=== PATIENT | male | born 1975 | race Caucasian/White ===

== ENCOUNTER 2023-05-11 13:12 | Emergency (ER) | payer OTHER ==
[~2023-05-11] VITALS: Ht 177.8 cm; Wt 81.7 kg
[2023-05-11 14:28] LABS: Albumin, Blood 3.4 g/dL (3.4-5.0); Albumin/Globulin Ratio 1.2 (0.8-1.8); Bun/Creatinine Ratio 12.9 (12.0-20.0); Calcium, Blood 8.6 mg/dL (8.5-10.1); Creatinine, Blood 0.62 mg/dL (0.60-1.20); Globulin, Blood 2.9 g/dL (2.2-4.0); Potassium, Blood 3.5 mmol/L (3.5-5.5); Total Protein, Blood 6.3 g/dL (6.4-8.2)
[2023-05-11 16:14] LABS: BASOPHILS ABSOLUTE AUTO 0.01 K/mm3 (0.00-0.23); BASOPHILS PERCENT AUTO 0 % (0-2); EOSINOPHILS PERCENT AUTO 0 % (0-6); IMMATURE GRAN ABSOLUTE AUTO 0.04 K/mm3 (0.00-0.10); IMMATURE GRAN PERCENT AUTO 1 % (0-1); LYMPHOCYTES ABSOLUTE AUTO 0.29 K/mm3 (0.84-5.20); LYMPHOCYTES PERCENT AUTO 6 % (21-46); MONOCYTES ABSOLUTE AUTO 0.29 K/mm3 (0.16-1.47); MONOCYTES PERCENT AUTO 6 % (4-13); Mean Corpuscular HGB 34.8 pg (26.0-34.0); Mean Corpuscular HGB Conc 37.1 g/dL (31.5-36.5); Mean Corpuscular Volume 94 fL (80-100); Mean Platelet Volume 9.4 fL (9.1-12.4); NEUTROPHILS ABSOLUTE AUTO 4.12 K/mm3 (1.96-9.15); NEUTROPHILS PERCENT AUTO 87 % (41-73); RDW Coefficient Variation 11.8 % (11.7-14.2); RDW Standard Deviation 40.5 fL (35.1-46.3)
[2023-05-11 16:21] LABS: Hematocrit 37.2 % (37.0-53.0); Hemoglobin 13.8 g/dL (13.5-17.5); Platelet Count 243 K/mm3 (150-400); Red Blood Cell Count 3.96 M/mm3 (4.30-5.90); White Blood Cell Count 14.25 K/mm3 (4.00-11.30)
[2023-05-11 16:50] LABS: Source, Urine Clean Catch
[2023-05-11] MEDS ORDERED: IRBESARTAN-HCT1 EAC3 PO (17:03)
[2023-05-11] MEDS ORDERED: AMLODIPINE BESY10 MG PO (17:03)
[2023-05-11 17:15] LABS: Appearance, Urine Cloudy (Clear); Bilirubin, Urine Neg (Neg); Blood, Urine 5+ (Neg); Color, Urine Brown (P-Yellow); Glucose Qualitative, Urine Neg (Neg); Ketones, Urine 3+ (Neg); Leukocyte Esterase, Urine 1+ (Neg); Nitrite, Urine Neg (Neg); Protein, Urine 4+ (Neg); Urobilinogen, Urine 1+ (Normal); pH, Urine 6.5 (5.0-8.0)
[2023-05-11 18:00] LABS: Red Blood Cells, Urine TNTC /hpf (0-2)
[2023-05-11 18:01] LABS: Squamous Epithelial Cells Few /hpf (Few)
[2023-05-11 18:06] LABS: Amorphous Light (0-Heavy); Bacteria Few /hpf
[2023-05-11 18:07] LABS: Other Crystals Few /hpf
[2023-05-11 18:45] VITALS: BP 148/98
[2023-05-11] MEDS ORDERED: Norco 5-325 Ta1 EACH PO ×2 (18:51→19:10)
[2023-05-11] MEDS ORDERED: CEPH500 PO (18:52)
== END 2023-05-11 19:20 | disposition home or self-care (01) ==
LOC: ER 13:12
PROVIDERS: Physician Assistant
DX: R31.0 Gross hematuria (principal); N28.1 Cyst of kidney, acquired; F17.200 Nicotine dependence, unspecified, uncomplicated
CPT/HCPCS: 74177; 80053; 81001; 83690; 85025; 96365-59; 96375; 99284-25; J0696; J1170; J2405; Q9967

== ENCOUNTER 2023-08-23 02:35 | Inpatient (IN) | payer OTHER ==
[~2023-08-23] VITALS: Ht 177.8 cm; Wt 51.7 kg
[~2023-08-23 02:35] MED LIST: AMLODIPINE BESY10 MG PO; CEPH500 PO; IRBESARTAN-HCT1 EAC3 PO; Norco 5-325 Ta1 EACH PO
[2023-08-23 03:02] LABS: BASOPHILS ABSOLUTE AUTO 0.06 K/mm3 (0.00-0.23); BASOPHILS PERCENT AUTO 0 % (0-2); EOSINOPHILS ABSOLUTE AUTO 0.19 K/mm3 (0.00-0.68); EOSINOPHILS PERCENT AUTO 1 % (0-6); Hematocrit 30.4 % (37.0-53.0); IMMATURE GRAN ABSOLUTE AUTO 0.07 K/mm3 (0.00-0.10); IMMATURE GRAN PERCENT AUTO 1 % (0-1); LYMPHOCYTES ABSOLUTE AUTO 0.95 K/mm3 (0.84-5.20); LYMPHOCYTES PERCENT AUTO 7 % (21-46); MONOCYTES ABSOLUTE AUTO 1.36 K/mm3 (0.16-1.47); MONOCYTES PERCENT AUTO 10 % (4-13); Mean Corpuscular HGB 28.9 pg (26.0-34.0); Mean Corpuscular HGB Conc 36.2 g/dL (31.5-36.5); Mean Corpuscular Volume 80 fL (80-100); Mean Platelet Volume 8.7 fL (9.1-12.4); NEUTROPHILS ABSOLUTE AUTO 10.88 K/mm3 (1.96-9.15); NEUTROPHILS PERCENT AUTO 81 % (41-73); Platelet Count 441 K/mm3 (150-400); RDW Coefficient Variation 12.4 % (11.7-14.2); RDW Standard Deviation 35.8 fL (35.1-46.3); Red Blood Cell Count 3.81 M/mm3 (4.30-5.90); White Blood Cell Count 13.51 K/mm3 (4.00-11.30)
[2023-08-23 03:50] LABS: Albumin, Blood 2.5 g/dL (3.4-5.0); Albumin/Globulin Ratio 0.6 (0.8-1.8); Calcium, Blood 8.6 mg/dL (8.5-10.1); Globulin, Blood 3.9 g/dL (2.2-4.0); Potassium, Blood 3.2 mmol/L (3.5-5.5); Total Protein, Blood 6.4 g/dL (6.4-8.2)
[2023-08-23 07:49] LABS: Source, Urine Clean Catch
[2023-08-23 07:53] LABS: Appearance, Urine Clear (Clear); Blood, Urine 5+ (Neg); Color, Urine Yellow (P-Yellow); Glucose Qualitative, Urine Neg (Neg); Ketones, Urine 3+ (Neg); Leukocyte Esterase, Urine 1+ (Neg); Nitrite, Urine Neg (Neg); Protein, Urine 2+ (Neg); Specific Gravity, Urine 1.015 (1.003-1.022); Urobilinogen, Urine 2+ (Normal)
[2023-08-23 07:59] LABS: Bilirubin, Urine 1+ (Neg)
[2023-08-23 08:00] LABS: Bacteria Rare /hpf; Mucus Light (0-Heavy); Squamous Epithelial Cells Rare /hpf (Few)
[2023-08-23 08:10] LABS: Bun/Creatinine Ratio 12.4 (12.0-20.0); Calcium, Blood 8.2 mg/dL (8.5-10.1); Creatinine, Blood 0.97 mg/dL (0.60-1.20); Potassium, Blood 3.5 mmol/L (3.5-5.5)
[2023-08-23 11:26] VITALS: BP 102/73
[2023-08-23] MEDS ORDERED: TRAM50 PO (13:34)
[2023-08-23] MEDS ORDERED: NEURONTIN300 MG PO (13:34)
[2023-08-23] MEDS ORDERED: DOCU100 PO (13:35)
--- NOTE | 2023-08-23 15:26 | NUR ---
DISCHARGE SUMMARY: PT DISCHARGED TO HOME. PT VERBALIZED HE WILL BE GOING TO [facility] IN [place]. PT MEDICATIONS RETRIEVED FROM PHARMACY AND GIVEN TO HIM. PT EDUCATED ON DISCHARGE MEDICATIONS AND INSTRUCTIONS. PT MAYRA. PT ASSISTED WITH PACKING BELONGINGS AND ESCORTED TO [facility] BY [facility]. PT AMBULATED DOWN, REFUSING WHEELCHAIR TRANSPORT AND WAS STEADY ON FEET.
[2023-08-23 15:52] VITALS: BP 98/73
--- NOTE | 2023-08-23 18:18 | NUR ---
SHIFT SUMMARY: PT A/O X 4, STANDBY ASSIST, PLEASANT AND COOPERATIVE. PT HAS LOW BLOOD PRESSURE OF 98/73 THIS EVEVING IS ASYMPTOMATIC. PT ABD PAIN MANAGED WITH TRAMADOL AND TYLENOL. PT GOT ONE DOSE OF FENTANYL 25 MCG IN ER. PT ABD IS DISTENDED AND HARD. PT REPORTS WEIGHT LOSS AND VERY POOR APPETITE OVER THE PAST WEEK. PT HAS LARGE RED BUMP ON HIS BACK WHICH HE ALSO REPORTS HAS BEEN ON HIS BACK FOR ABOUT A WEEK. STAGE 2 PRESSURE SORE TO BOTTOM PRESENT.
[2023-08-23 19:21] VITALS: BP 95/67
[2023-08-24 03:22] VITALS: BP 105/79
--- NOTE | 2023-08-24 04:35 | NUR ---
SHIFT SUMMARY. SHIFT HAS BEEN MOSTLY UNREMARKABLE. PT IS AOX4, PLEASANT, COOPERATIVE WITH CARE. COMPLAINED OF PAIN EARLY IN SHIFT WHICH HAS BEEN WELL MANAGED VIA EMAR. PT HAS BEEN ABLE TO SLEEP THROUGH MOST OF SHIFT THUS FAR. SATTING WELL ON ROOM AIR, CALLS APPROPRIATELY FOR ASSISTANCE. BED LOCKED IN LOWEST POSITION. CALL LIGHT LEFT WITHIN REACH.
[2023-08-24 05:32] LABS: BASOPHILS ABSOLUTE AUTO 0.08 K/mm3 (0.00-0.23); BASOPHILS PERCENT AUTO 1 % (0-2); EOSINOPHILS PERCENT AUTO 2 % (0-6); Hemoglobin 9.8 g/dL (13.5-17.5); IMMATURE GRAN ABSOLUTE AUTO 0.05 K/mm3 (0.00-0.10); IMMATURE GRAN PERCENT AUTO 1 % (0-1); LYMPHOCYTES ABSOLUTE AUTO 1.52 K/mm3 (0.84-5.20); LYMPHOCYTES PERCENT AUTO 14 % (21-46); MONOCYTES ABSOLUTE AUTO 1.18 K/mm3 (0.16-1.47); MONOCYTES PERCENT AUTO 11 % (4-13); Mean Corpuscular HGB 28.4 pg (26.0-34.0); Mean Corpuscular HGB Conc 33.8 g/dL (31.5-36.5); Mean Corpuscular Volume 84 fL (80-100); Mean Platelet Volume 9.4 fL (9.1-12.4); NEUTROPHILS PERCENT AUTO 73 % (41-73); Platelet Count 392 K/mm3 (150-400); RDW Coefficient Variation 13.5 % (11.7-14.2); RDW Standard Deviation 38.5 fL (35.1-46.3); Red Blood Cell Count 3.45 M/mm3 (4.30-5.90); White Blood Cell Count 11.03 K/mm3 (4.00-11.30)
[2023-08-24 06:27] LABS: Bun/Creatinine Ratio 11.4 (12.0-20.0); Calcium, Blood 7.8 mg/dL (8.5-10.1); Creatinine, Blood 0.96 mg/dL (0.60-1.20)
[2023-08-24 07:30] VITALS: BP 96/74
[2023-08-24 15:40] VITALS: BP 104/78
--- NOTE | 2023-08-24 18:29 | NUR ---
SHIFT SUMMARY A&O X 4, VSS. HAS RESTED QUIETLY THROUGHOUT THE SHIFT. MEDICATED PRN FOR C/O PAIN PER EMAR WITH GOOD RELIEF STATED BY PT. ULCER ON L SIDE OF COCCCYX CLEANED & MEPIPLEX APPLIED. PT STATES THE BUTTOCKS WOUND FEELS MUCH BETTER WITH DRESSING ON. POSITIONED PT WITH PILLOWS FOR COMFORT & OFF LOADING BUTTOCKS/COCCYX. URINE IS DARK, USES URINAL INDEPENDENTLY. MIRALAX, STOOL SOFTNER & SENNA GIVEN PER EMAR. PT STATES HE HAS NOT HAD A BM IN DAYS. BED IS IN LOW POSITION, CALLL LIGHT WITHIN REACH.
[2023-08-24 20:00] VITALS: BP 104/74
[2023-08-25 02:04] VITALS: BP 104/81
--- NOTE | 2023-08-25 04:35 | NUR ---
SHIFT SUMMARY. SHIFT HAS BEEN MOSTLY UNREMARKABLE. PT AOX4, PLEASANT, COOPERATIVE WITH CARE. CALLS APPROPRIATELY FOR ASSISTANCE AND IS ABLE TO MAKE NEEDS KNOWN. SOME MILD PAIN REPORTED EARLY IN SHIFT, WELL MANAGED VIA PRN PAIN MEDICATIONS. PT HAS BEEN ABLE TO SLEEP THROUGH MOST OF SHIFT SINCE ADMINISTRATION. BED LOCKED IN LOWEST POSITION. CALL LIGHT LEFT WITHIN REACH.
[2023-08-25 05:34] LABS: Hematocrit 28.9 % (37.0-53.0); Hemoglobin 9.8 g/dL (13.5-17.5); Mean Corpuscular HGB Conc 33.9 g/dL (31.5-36.5); Mean Corpuscular Volume 83 fL (80-100); Mean Platelet Volume 8.3 fL (9.1-12.4); Platelet Count 356 K/mm3 (150-400); RDW Coefficient Variation 12.5 % (11.7-14.2); RDW Standard Deviation 38.1 fL (35.1-46.3); White Blood Cell Count 8.43 K/mm3 (4.00-11.30)
[2023-08-25 06:15] LABS: Bun/Creatinine Ratio 8.8 (12.0-20.0); Calcium, Blood 7.9 mg/dL (8.5-10.1); Creatinine, Blood 0.91 mg/dL (0.60-1.20); Magnesium, Blood 2.1 mg/dL (1.6-2.4); Potassium, Blood 3.6 mmol/L (3.5-5.5)
[2023-08-25 15:13] VITALS: BP 107/76
--- NOTE | 2023-08-25 18:57 | NUR ---
SHIFT SUMMARY ALERT, ORIENTED, WITHDRAWN, UNMOTIVATED, FOLLOWS DIRECTIONS. SBA/IND UP WITH CANE TO BATHROOM. LEFT ABD FIRM AND DISTENDED. REPORTS PAIN 10/10, MEDICATED PER EMAR. INCREASED BOWEL CARE THIS SHIFT, ALTHOUGH PATIENT UNMOTIVATED TO DRINK MIRALAX OR PRUNE JUICE. PLAN IS FOR DISCHARGE HOME WHEN STABLE AND FOLLOW UP WITH UROLOGY REGARDING LEFT KIDNEY TUMOR.
[2023-08-25 19:55] VITALS: BP 106/78
--- NOTE | 2023-08-26 05:12 | NUR ---
NOC SHIFT SUMMARY: POSSIBLE DISCHARGE HOME TODAY. CONTINUES WITH LEFT RENAL MASS AND PAIN. UP INDEPENDENTLY IN THE ROOM. A&O X4.
[2023-08-26 05:24] VITALS: BP 127/92
[2023-08-26 06:55] LABS: Calcium, Blood 8.2 mg/dL (8.5-10.1); Creatinine, Blood 0.89 mg/dL (0.60-1.20); Magnesium, Blood 2.4 mg/dL (1.6-2.4); Phosphorus, Blood 3.2 mg/dL (2.5-4.9); Potassium, Blood 3.9 mmol/L (3.5-5.5)
[2023-08-26 07:35] VITALS: BP 108/85
[2023-08-26] MEDS ORDERED: OXAYDO5 M1 PO (15:31)
[2023-08-26] MEDS ORDERED: DOCUZEN 8.6-501 EACH PO (15:32)
[2023-08-26] MEDS ORDERED: MIRALAX17 GM PO (15:33)
--- NOTE | 2023-08-26 18:18 | NUR ---
DISCHARGE: PT D/C VIA WHEELCHAIR WITH FAMILY. IV REMOVED BY POLYSOM TECH W/O COMPLICATIONS. PT HAD MEDIUM FORMED BM THIS SHIFT. PT SENT WITH HARD SCRIPT FOR OXY. RX MEDICATIONS FAXED TO [facility].
== END 2023-08-26 17:20 | disposition home or self-care (01) | DRG 640 ==
LOC: ER 02:35 → MEDS 09:35
PROVIDERS: Emergency Medicine; Internal Medicine; ADMIT Family Medicine
DX: E87.1 Hypo-osmolality and hyponatremia (principal); E43 Unspecified severe protein-calorie malnutrition; N13.30 Unspecified hydronephrosis; R64 Cachexia; E86.0 Dehydration; I10 Essential (primary) hypertension; E87.6 Hypokalemia; F12.90 Cannabis use, unspecified, uncomplicated; D64.9 Anemia, unspecified; D75.838 Other thrombocytosis; N28.89 Other specified disorders of kidney and ureter; Z79.899 Other long term (current) drug therapy; Z87.891 Personal history of nicotine dependence; Z68.24 Body mass index [BMI] 24.0-24.9, adult
CPT/HCPCS: 36415; 74177; 80048; 80053; 81001; 83605; 83735; 83930; 84100; 84295; 84300; 85025; 85027; 87040; 87086; 96361; 96374-59; 96375; 99285-25; A9270; J0696; J1650; J2270; J2405; J3010; J7030; Q9967

== ENCOUNTER 2023-10-20 16:39 | Inpatient (IN) | payer OTHER ==
[~2023-10-20] VITALS: Ht 177.8 cm; Wt 53.2 kg
[~2023-10-20 16:39] MED LIST changes: +DOCU100 PO; +DOCUZEN 8.6-501 EACH PO; +MIRALAX17 GM PO; +NEURONTIN300 MG PO; +OXAYDO5 M1 PO; +TRAM50 PO
[2023-10-20 17:12] LABS: BASOPHILS ABSOLUTE AUTO 0.07 K/mm3 (0.00-0.23); BASOPHILS PERCENT AUTO 0 % (0-2); EOSINOPHILS ABSOLUTE AUTO 0.03 K/mm3 (0.00-0.68); EOSINOPHILS PERCENT AUTO 0 % (0-6); Hematocrit 28.6 % (37.0-53.0); IMMATURE GRAN ABSOLUTE AUTO 0.19 K/mm3 (0.00-0.10); IMMATURE GRAN PERCENT AUTO 1 % (0-1); LYMPHOCYTES ABSOLUTE AUTO 2.29 K/mm3 (0.84-5.20); LYMPHOCYTES PERCENT AUTO 11 % (21-46); MONOCYTES ABSOLUTE AUTO 1.14 K/mm3 (0.16-1.47); MONOCYTES PERCENT AUTO 5 % (4-13); Mean Corpuscular HGB 25.4 pg (26.0-34.0); Mean Corpuscular HGB Conc 31.5 g/dL (31.5-36.5); Mean Corpuscular Volume 81 fL (80-100); Mean Platelet Volume 8.3 fL (9.1-12.4); NEUTROPHILS ABSOLUTE AUTO 17.59 K/mm3 (1.96-9.15); NEUTROPHILS PERCENT AUTO 83 % (41-73); Platelet Count 828 K/mm3 (150-400); RDW Coefficient Variation 17.9 % (11.7-14.2); RDW Standard Deviation 50.4 fL (35.1-46.3); Red Blood Cell Count 3.55 M/mm3 (4.30-5.90); White Blood Cell Count 21.31 K/mm3 (4.00-11.30)
[2023-10-20 17:34] LABS: Albumin, Blood 2.1 g/dL (3.4-5.0); Albumin/Globulin Ratio 0.5 (0.8-1.8); Bilirubin, Total 0.3 mg/dL (0.1-1.0); Calcium, Blood 8.6 mg/dL (8.5-10.1); Creatinine, Blood 1.05 mg/dL (0.60-1.20); Globulin, Blood 4.1 g/dL (2.2-4.0); Potassium, Blood 4.1 mmol/L (3.5-5.5); Total Protein, Blood 6.2 g/dL (6.4-8.2)
[2023-10-20 19:28] LABS: Source, Urine Clean Catch
[2023-10-20 19:38] LABS: Appearance, Urine Bloody (Clear); Bilirubin, Urine Neg (Neg); Blood, Urine 4+ (Neg); Color, Urine Red (P-Yellow); Glucose Qualitative, Urine Neg (Neg); Ketones, Urine Neg (Neg); Leukocyte Esterase, Urine 2+ (Neg); Nitrite, Urine Neg (Neg); Protein, Urine 4+ (Neg); Specific Gravity, Urine 1.015 (1.003-1.022); Urobilinogen, Urine NORM (Normal)
[2023-10-20 20:09] LABS: Bacteria Many /hpf; Red Blood Cells, Urine TNTC /hpf (0-2); Squamous Epithelial Cells Few /hpf (Few); White Blood Cells, Urine TNTC /hpf (0-5)
[2023-10-20 20:10] LABS: Mucus Light (0-Heavy)
[2023-10-20] MEDS ORDERED: HYDROCODONE-AC1 EAC7 PO (21:18)
[2023-10-20] MEDS ORDERED: IRBESARTAN-HCT1 EAC3 PO (21:18)
[2023-10-20] MEDS ORDERED: TRAM50 PO (21:19)
[2023-10-21 04:57] LABS: BASOPHILS ABSOLUTE AUTO 0.04 K/mm3 (0.00-0.23); BASOPHILS PERCENT AUTO 0 % (0-2); EOSINOPHILS ABSOLUTE AUTO 0.33 K/mm3 (0.00-0.68); EOSINOPHILS PERCENT AUTO 2 % (0-6); Hematocrit 22.5 % (37.0-53.0); IMMATURE GRAN ABSOLUTE AUTO 0.09 K/mm3 (0.00-0.10); IMMATURE GRAN PERCENT AUTO 1 % (0-1); LYMPHOCYTES ABSOLUTE AUTO 2.93 K/mm3 (0.84-5.20); LYMPHOCYTES PERCENT AUTO 21 % (21-46); MONOCYTES ABSOLUTE AUTO 1.23 K/mm3 (0.16-1.47); MONOCYTES PERCENT AUTO 9 % (4-13); Mean Corpuscular HGB 25.7 pg (26.0-34.0); Mean Corpuscular HGB Conc 31.1 g/dL (31.5-36.5); Mean Corpuscular Volume 83 fL (80-100); Mean Platelet Volume 8.4 fL (9.1-12.4); NEUTROPHILS ABSOLUTE AUTO 9.34 K/mm3 (1.96-9.15); NEUTROPHILS PERCENT AUTO 67 % (41-73); Platelet Count 524 K/mm3 (150-400); RDW Standard Deviation 51.6 fL (35.1-46.3); Red Blood Cell Count 2.72 M/mm3 (4.30-5.90); White Blood Cell Count 13.96 K/mm3 (4.00-11.30)
[2023-10-21 05:23] LABS: Calcium, Blood 7.5 mg/dL (8.5-10.1); Potassium, Blood 3.7 mmol/L (3.5-5.5)
[2023-10-21 07:49] VITALS: BP 101/68
[2023-10-21 10:58] VITALS: BP 89/59
[2023-10-21 11:32] LABS: Hematocrit 23.3 % (37.0-53.0); Hemoglobin 7.2 g/dL (13.5-17.5)
[2023-10-21 12:09] VITALS: BP 99/70
[2023-10-21 15:44] VITALS: BP 91/69
[2023-10-21 16:49] LABS: Hematocrit 22.7 % (37.0-53.0)
--- NOTE | 2023-10-21 18:31 | NUR ---
SHIFT SUMMARY: MATIAS IS A&OX4. VSS, NO ACUTE EVENTS THIS SHIFT. HE IS TOLERATING PO INTAKE WELL, ABLE TO TURN AND REPOSITION HIMSELF IN BED INDEPENDENTLY, AND IS A STANDBY ASSIST WITH HIS CANE FOR AMBULATION. HE HAS COMPLAINED OF DIZZINESS/LIGHTHEADEDNESS THIS SHIFT. HE IS USING THE URINAL WITHOUT DIFFICULTY, URINE MAROON. PT STATES HE IS UNABLE TO LIE ON EITHER SIDE D/T HX OF BACK SURGERY AND LEFT SIDED ABD DISTENTION. CREAM AND MEPILEX PLACED TO COCCYX, PILLOWS PLACED UNDERNEATH HIPS TO FLOAT COCCYX. PT REPORTS MINIMAL PAIN RELIEF WITH MEDICATIONS PER MAR. HE IS LYING IN BED WITH THE CALL LIGHT IN REACH. WILL GIVE REPORT TO ONCOMING SHIFT.
[2023-10-21 20:26] VITALS: BP 113/80
[2023-10-22] VITALS (8 sets, daily range): BP systolic 101–121; BP diastolic 63–82
--- NOTE | 2023-10-22 05:14 | NUR ---
SHIFT SUMMARY ADMITTED FOR ABDOMINAL PAIN, UTI/SEPSIS. FULL CODE. IV ANTIB RX ARE SCHEDULED, IV FLUIDS ARE SCHEDULED, MONITORING LABS. HE IS A&O X4, ON RA. HYPOTENSION NOTED SINCE ADMIT. HEMATURIA NOTED. HX OF LEFT RENAL MASS, SEES OUTPATIENT UROLOGY. PAIN RX GIVEN THIS SHIFT. CANE AND STANDBY ASSIST. REGULAR DIET. NS INFUSING ORDERED
[2023-10-22 06:40] LABS: Hematocrit 21.2 % (37.0-53.0); Hemoglobin 6.6 g/dL (13.5-17.5); Mean Corpuscular HGB 25.9 pg (26.0-34.0); Mean Corpuscular HGB Conc 31.1 g/dL (31.5-36.5); Mean Corpuscular Volume 83 fL (80-100); Mean Platelet Volume 8.5 fL (9.1-12.4); Platelet Count 471 K/mm3 (150-400); RDW Coefficient Variation 18.6 % (11.7-14.2); RDW Standard Deviation 53.5 fL (35.1-46.3); Red Blood Cell Count 2.55 M/mm3 (4.30-5.90); White Blood Cell Count 9.98 K/mm3 (4.00-11.30)
[2023-10-22 07:11] LABS: Bun/Creatinine Ratio 13.4 (12.0-20.0); Calcium, Blood 7.2 mg/dL (8.5-10.1); Creatinine, Blood 0.97 mg/dL (0.60-1.20); Magnesium, Blood 2.4 mg/dL (1.6-2.4); Percent Saturation 11.5 % (20.0-50.0); Potassium, Blood 3.9 mmol/L (3.5-5.5)
[2023-10-22 17:46] LABS: Hematocrit 27.9 % (37.0-53.0); Hemoglobin 8.7 g/dL (13.5-17.5)
--- NOTE | 2023-10-22 18:45 | NUR ---
SUMMARY- A/O X4, BEDREST TODAY.. FEELING VERY WEAK AND HAVING PAIN. HAS LOST 60LB IN 4 MTHS. KNOWN MASS L KIDNEY AREA, PLAN FOR UROLOTY CONSULT 11/02. TOLERATING MIN AMOUNT SOLID FOODS. DRINKING FLUIDS. HAD A UNIT OF BLOOD TODAY FOR LOW H/H. URINE IS BURGENDY COLOR. THIS IS ONGOING SINCE DX OF MASS. PT HAVING FLANK PAIN. CONTROLLED WITH DILAUDID BUT STATES RELEIF SHORT LIVED. OBTAINED ORDER TO START OREAL OXY TO SEE IF IT HOLDS BETTER. LAST BM 3 DAYS AGO. STARTED MIRILAX AND BROWN COW. ORDER OBTAINED FOR DULCOLAX TABS, WILL START TONIGHT. WILL REPORT TO NOC RN
[2023-10-23 05:17] VITALS: BP 96/65
[2023-10-23 07:32] LABS: Hematocrit 25.6 % (37.0-53.0)
[2023-10-23 07:44] VITALS: BP 97/62
[2023-10-23 15:38] VITALS: BP 98/72
--- NOTE | 2023-10-23 18:40 | NUR ---
SUMMARY- PT A/O X4, PLEASANT AND COOPERATIVE. STAYED IN BED MOST OF THE SHIFT. USES CALL LIGHT. NEW ORDER FOR PHISICAL TX BUT NO ONE HERE THIS WEEKEND. RN AND BED CONTROL SPECIALIST GOT PT UP TO CHAIR, 1 SBA, GEN WEAKNESS BUT ADQ STRENGTH. TIRES EASILY. AMBULATED TO BATHROOM AND HAD A SHOWER. PT CONT TO HAVE HEMATURIA, DARK RED TINGE, CONCENTRATED. PUSING PO FLUIDS BUT HAS LITTLE APPETITE. CALLED DR MOE IN PM AND INFORMED PT ISN'T TAKING IN A LOT OF FLUIDS, ORDER FOR LR 1L OVER NIGHT. PT C/O PAIN IN L FLANK REGION FREQUENTLY, OXYCOCONE 10MG GIVEN Q4 WITH ONLY PARTIAL RELEIF. GIVE DILAUDID 0.5MG IN BETWEEN FOR BTP WHICH IS EFFECTIVE. PT STATES HE HAS BEEN TAKING HYDROCODONE 10MG TABE AT HOME AND HAS A TOLERANCE. WORKING ON BOWEL CARE, LAST BM 10/20, WILL CONT WITH BOWEL CARE. WILL REPORT TO MARIA E CHAVEZ
[2023-10-23 20:38] VITALS: BP 114/82
[2023-10-24 03:49] VITALS: BP 102/70
[2023-10-24 06:08] LABS: Hematocrit 25.2 % (37.0-53.0); Hemoglobin 7.9 g/dL (13.5-17.5); Mean Corpuscular HGB 26.5 pg (26.0-34.0); Mean Corpuscular HGB Conc 31.3 g/dL (31.5-36.5); Mean Corpuscular Volume 85 fL (80-100); Mean Platelet Volume 8.7 fL (9.1-12.4); Platelet Count 464 K/mm3 (150-400); RDW Coefficient Variation 18.4 % (11.7-14.2); RDW Standard Deviation 55.8 fL (35.1-46.3); Red Blood Cell Count 2.98 M/mm3 (4.30-5.90); White Blood Cell Count 9.46 K/mm3 (4.00-11.30)
[2023-10-24 06:34] LABS: Bun/Creatinine Ratio 15.5 (12.0-20.0); Calcium, Blood 7.6 mg/dL (8.5-10.1); Creatinine, Blood 0.77 mg/dL (0.60-1.20); Potassium, Blood 4.5 mmol/L (3.5-5.5)
[2023-10-24 07:36] VITALS: BP 102/69
[2023-10-24 15:42] VITALS: BP 98/69
--- NOTE | 2023-10-24 19:46 | NUR ---
SUMMARY- AAOX4. SBA WITH WALKER AND GAITBELT TO BATHROOM. PAIN WELL CONTROLLED WITH EMAR MEDS. BLOODY URINE STILL PRESENT ALL SHIFT. PT HAS GOOD APPETITE.
[2023-10-24 21:27] VITALS: BP 108/69
[2023-10-25 00:41] VITALS: BP 100/68
[2023-10-25 04:27] VITALS: BP 104/68
[2023-10-25 05:14] LABS: Hematocrit 26.6 % (37.0-53.0); Hemoglobin 8.2 g/dL (13.5-17.5); Mean Corpuscular HGB 26.4 pg (26.0-34.0); Mean Corpuscular HGB Conc 30.8 g/dL (31.5-36.5); Mean Corpuscular Volume 86 fL (80-100); Mean Platelet Volume 8.4 fL (9.1-12.4); Platelet Count 476 K/mm3 (150-400); RDW Coefficient Variation 18.6 % (11.7-14.2); RDW Standard Deviation 57.4 fL (35.1-46.3); Red Blood Cell Count 3.11 M/mm3 (4.30-5.90); White Blood Cell Count 8.38 K/mm3 (4.00-11.30)
[2023-10-25 07:26] VITALS: BP 98/64
--- NOTE | 2023-10-25 07:33 | NUR ---
SHIFT SUMMARY PATIENTS PAIN HAS NOT BEEN WELL MANAGED SINCE ADMISSION. THEY HAD STARTED WITH 5 MG OXYCODONE Q4 WHICH WAS INCREASED TO 10 MG Q4 ON TOP OF IV DILAUDID FOR BREATHRHOUGH PAIN. WHICH STILL MADE LITTLE TO NO DIFFERENCE. PATIENT STATED PAIN WAS 10/10 AT START OF MY SHIFT. IV DILAUDID 1 MG WAS GIVEN AND WAITER/WAITRESS SECOND CLASS PROVIDER DR. REYES NOTIFIED AND UPDATED ON CURRENT PAIN MANAGEMENT REGIMEN. SHE ORDERED 20 MG OXYCONTIN CR ON TOP OF 10 MG OXYCODONE Q4. PAIN REGIMEN HAS BEEN KEPT UP ON TIME T/O NIGHT. MOST RECENT DOSE OF 10 MG OF OXYCODONE BEING GIVEN AROUND 6:30 AM WITH SCHEDULED OXCONTIN TO BE GIVEN AT 9 AM. CARE PASSED ON TO NEXT SHIFT.
[2023-10-25] MEDS ORDERED: MIRALAX17 GM PO (14:04)
[2023-10-25] MEDS ORDERED: Oxycodone HCl20 M1 PO (14:04)
[2023-10-25] MEDS ORDERED: FERSU300 PO (14:04)
[2023-10-25] MEDS ORDERED: OXAYDO5 M1 PO (14:04)
[2023-10-25 14:48] VITALS: BP 103/74
[2023-10-25 16:10] VITALS: BP 101/79
--- NOTE | 2023-10-25 19:28 | NUR ---
DISCHARGE SUMMARY PATIENT CONTINUED TO HAVE PAIN TODAY 7-07/03, MEDICATED PER EMAR. HE CONTINUES TO HAVE BLOOD IN URING. PATIENT EDUCATION AND MEDICATION PACKET PRINTED AND SIGNED BY PATIENT. ALL QUESTIONS ANSWERED. PATIENT EDUCATED HE CAN ALWAYS COME BACK TO ER IF SHORTNESS OF BREATH RETURNS OR ANY OTHER WORSENING OF SYMPTOMS. HE VERBALIZES UNDERSTANDING. HANDWRITTEN RX FOR OXYCONTIN AND OXYCODONE GIVEN TO PATIENT, IV REMOVED BY HYDRO OPERATOR AND PATIENT LEFT UNIT AT 1610 VIA TRANSPORT CHAIR WITH [employer] [facility]IA PRIVATE VEHICLE.
== END 2023-10-25 16:19 | disposition home or self-care (01) | DRG 872 ==
LOC: ER 16:39 → ERHOLD 22:22 → MEDS 22:22
PROVIDERS: Family Medicine; Internal Medicine; Physician Assistant; ADMIT Internal Medicine
DX: A41.9 Sepsis, unspecified organism (principal); E87.1 Hypo-osmolality and hyponatremia; N39.0 Urinary tract infection, site not specified; Z68.1 Body mass index [BMI] 19.9 or less, adult; R64 Cachexia; I10 Essential (primary) hypertension; N28.89 Other specified disorders of kidney and ureter; D75.839 Thrombocytosis, unspecified; F17.210 Nicotine dependence, cigarettes, uncomplicated; D64.9 Anemia, unspecified; Z28.21 Immunization not carried out because of patient refusal
CPT/HCPCS: 36415; 74177; 80048; 80053; 81001; 82728; 83540; 83550; 83605; 83735; 85014; 85018; 85025; 85027; 86850; 86900; 86901; 86923; 87040; 87086; 93971; 96361; 96365; 96366; 96372; 96375; 96376; 97110; 97112; 97116; 97161; 99285-25; A9270; G0378; J0696; J1170; J1650; J1750; J7030; J7050; J7120; P9016; Q9967

== ENCOUNTER 2023-12-03 09:21 | Emergency (ER) | payer OTHER ==
[~2023-12-03] VITALS: Ht 182.9 cm; Wt 63.5 kg
[~2023-12-03 09:21] MED LIST changes: +FERSU300 PO; +HYDROCODONE-AC1 EAC7 PO; +Oxycodone HCl20 M1 PO
[2023-12-03] MEDS ORDERED: HYDROmorphone HCl/Pf 1MG SYR IV ONE (09:45)
[2023-12-03] MEDS ORDERED: Dilaudid 2 mg Ta2 MG (10:21)
[2023-12-03] MEDS ORDERED: DOCUZEN 8.6-501 EACH PO (10:21)
[2023-12-03] MEDS ORDERED: ELIQUIS5 M3 PO (10:21)
[2023-12-03] MEDS ORDERED: NALOXONE HCL4 MG (10:21)
[2023-12-03] MEDS ORDERED: MIRALAX11914 PO (10:22)
[2023-12-03] MEDS ORDERED: ACETAMINOPHEN500 M2 PO (10:22)
[2023-12-03] MEDS ORDERED: Dilaudid 2 mg Ta2 MG PO (12:05)
[2023-12-03 12:30] VITALS: BP 153/103
== END 2023-12-03 13:10 | disposition home or self-care (01) ==
LOC: ER 09:21
DX: M79.652 Pain in left thigh (principal); Z86.718 Personal history of other venous thrombosis and embolism; I10 Essential (primary) hypertension; Z79.899 Other long term (current) drug therapy
CPT/HCPCS: 93971; 96374; 99284-25; J1170